=== PATIENT | male | born 1950 | race African-American/Black ===

== ENCOUNTER 2016-05-08 20:29 | Emergency (ER) | payer MEDICARE, OTHER ==
[~2016-05-08] VITALS: Ht 182.9 cm; Wt 68.0 kg
[2016-05-08] MEDS ORDERED: CEPHALEXIN MONOHYDRATE 500 MG CAPSULE PO ONE (22:30)
[2016-05-08] MEDS ORDERED: ONDANSETRON HCL 4 MG TABLET PO ONE (22:30)
[2016-05-08] MEDS ORDERED: OxyCODONE HCL/ACETAMINOPHEN 5-325 MG TABLET PO ONE (22:30)
[2016-05-08] MEDS ORDERED: BACITRACIN 0.9 GM PACKET OINTMENT TP ONE (22:30)
[2016-05-08 23:30] VITALS: BP 138/76
== END 2016-05-08 23:57 | disposition home or self-care (01) ==
LOC: EMS 20:31
DX: S90.812A Abrasion, left foot, initial encounter (principal); S90.811A Abrasion, right foot, initial encounter; J00 Acute nasopharyngitis [common cold]; F17.210 Nicotine dependence, cigarettes, uncomplicated; F10.20 Alcohol dependence, uncomplicated; X58.XXXA Exposure to other specified factors, initial encounter; Y93.89 Activity, other specified; Y92.488 Other paved roadways as the place of occurrence of the external cause; Y99.8 Other external cause status
CPT/HCPCS: 99284; Q0162

== ENCOUNTER 2016-05-15 21:28 | Emergency (ER) | payer MEDICARE, OTHER ==
[~2016-05-15] VITALS: Ht 182.9 cm; Wt 70.0 kg
[2016-05-15 22:07] LABS: BASOPHILS # (AUTO) 0.07 K/uL (0.00-0.20); BASOPHILS % (AUTO) 0.7 % (0.0-2.0); EOSINOPHILS # (AUTO) 0.07 K/uL (0.00-0.70); EOSINOPHILS % (AUTO) 0.65 % (1.0-6.0); HEMATOCRIT 38.3 % (41-53); HEMOGLOBIN 12.8 g/dL (13.5-17.5); LYMPHOCYTES # (AUTO) 2.2 K/uL (1.0-4.8); LYMPHOCYTES % (AUTO) 21.9 % (22.0-44.0); MEAN CORPUSCULAR HEMOGLOBIN 31.5 pg (26.0-34.0); MEAN CORPUSCULAR HGB CONC 33.4 G/dL (31.0-37.0); MEAN CORPUSCULAR VOLUME 94 fL (80-100); MONOCYTES # (AUTO) 0.8 K/uL (0.1-1.0); MONOCYTES % (AUTO) 8.2 % (2.0-9.0); NEUTROPHILS % (AUTO) 68.5 % (40.0-70.0); PLATELET COUNT (AUTO) 296 K/uL (150-450); RED BLOOD CELL COUNT(AUTO) 4.06 MIL/uL (4.50-5.90); RED CELL DISTRIBUTION WIDTH 12.9 % (11.5-14.5); WHITE BLOOD COUNT (AUTO) 10.2 K/uL (4.5-11.0)
[2016-05-15 22:26] LABS: ALANINE AMINOTRANSFERASE 39 U/L (12-78); ALBUMIN 2.5 g/dL (3.4-5.0); ANION GAP 7 mmol/L (8-16); ASPARTATE AMINOTRANSFERASE 72 U/L (15-37); BILIRUBIN,TOTAL 0.4 mg/dL (0.1-1.0); CALCIUM, TOTAL 8.3 mg/dL (8.8-10.5); CARBON DIOXIDE 28 mmol/L (22-29); CHLORIDE 104 mmol/L (98-107); CREATININE 0.82 mg/dL (0.60-1.30); GLOMERULAR FILTR. RATE CALC > 60 mL/min (>60); SODIUM SERUM 139 mmol/L (136-145); TOTAL PROTEIN, SERUM 7.6 g/dL (6.4-8.2); UREA NITROGEN, BLOOD 11 mg/dL (7-18)
[2016-05-15 22:36] LABS: POTASSIUM 2.7 mmol/L (3.5-5.1)
[2016-05-15 22:37] LABS: LACTIC ACID 2.5 mmol/L (0.4-2.0)
[2016-05-15] MEDS ORDERED: BACITRACIN 0.9 GM PACKET OINTMENT TP ONE (23:15)
[2016-05-15] MEDS ORDERED: POTASSIUM CHLORIDE 10% 40 MEQ/30 ML LIQUID UDCUP PO ONE (23:15)
[2016-05-15] MEDS ORDERED: HYDROCODONE/ACETAMINOPHEN 5-325 MG TABLET PO ONE (23:15)
[2016-05-16 00:02] LABS: REFLEX LACTIC ACID? YES YES
[2016-05-16 01:37] VITALS: BP 142/89
== END 2016-05-16 01:39 | disposition home or self-care (01) ==
LOC: EMS 21:30
DX: M79.672 Pain in left foot (principal); M79.671 Pain in right foot; E87.6 Hypokalemia; F10.229 Alcohol dependence with intoxication, unspecified; Y90.7 Blood alcohol level of 200-239 mg/100 ml
CPT/HCPCS: 36415; 71010; 80053; 83605; 83690; 84484; 85025; 93005; 99285; G0480

== ENCOUNTER 2016-08-31 08:26 | Emergency (ER) | payer MEDICARE, OTHER ==
[~2016-08-31] VITALS: Ht 175.3 cm; Wt 86.4 kg
[2016-08-31] MEDS ORDERED: FINA5TAB41 PO (08:55)
[2016-08-31] MEDS ORDERED: TAMS0.4C32 PO (08:55)
[2016-08-31] MEDS ORDERED: OXYC-38 PO (08:55)
[2016-08-31] MEDS ORDERED: LANS30TA4 PO (08:55)
[2016-08-31] MEDS ORDERED: GABA-531 PO (08:55)
[2016-08-31] MEDS ORDERED: FOLI1 PO (08:55)
[2016-08-31] MEDS ORDERED: CEPH500 PO (09:04)
[2016-08-31 10:48] LABS: EOSINOPHILS % (AUTO) 2.7 % (1.0-6.0); HEMATOCRIT 43.4 % (41-53); HEMOGLOBIN 14.5 g/dL (13.5-17.5); LYMPHOCYTES # (AUTO) 1.6 K/uL (1.0-4.8); LYMPHOCYTES % (AUTO) 42.4 % (22.0-44.0); MEAN CORPUSCULAR HEMOGLOBIN 32.7 pg (26.0-34.0); MEAN CORPUSCULAR HGB CONC 33.4 G/dL (31.0-37.0); MEAN CORPUSCULAR VOLUME 98 fL (80-100); MONOCYTES # (AUTO) 0.4 K/uL (0.1-1.0); MONOCYTES % (AUTO) 10.7 % (2.0-9.0); NEUTROPHILS # (AUTO) 1.7 K/uL (1.8-7.7); NEUTROPHILS % (AUTO) 43.2 % (40.0-70.0); PLATELET COUNT (AUTO) 275 K/uL (150-450); RED BLOOD CELL COUNT(AUTO) 4.43 MIL/uL (4.50-5.90); RED CELL DISTRIBUTION WIDTH 17.5 % (11.5-14.5); WHITE BLOOD COUNT (AUTO) 3.8 K/uL (4.5-11.0)
[2016-08-31 10:53] LABS: ALANINE AMINOTRANSFERASE 149 U/L (12-78); ALBUMIN 3.3 g/dL (3.4-5.0); ANION GAP 15 mmol/L (8-16); ASPARTATE AMINOTRANSFERASE 271 U/L (15-37); BILIRUBIN,TOTAL 0.5 mg/dL (0.1-1.0); CALCIUM, TOTAL 8.4 mg/dL (8.8-10.5); CARBON DIOXIDE 25 mmol/L (22-29); CHLORIDE 104 mmol/L (98-107); CREATININE 0.74 mg/dL (0.60-1.30); GLOMERULAR FILTR. RATE CALC > 60 mL/min (>60); SODIUM SERUM 144 mmol/L (136-145); TOTAL PROTEIN, SERUM 8.6 g/dL (6.4-8.2); UREA NITROGEN, BLOOD 6 mg/dL (7-18)
[2016-08-31 11:00] LABS: POTASSIUM 2.9 mmol/L (3.5-5.1)
[2016-08-31 11:03] LABS: RBC MORPHOLOGY COMMENT ABNORMAL RBC MORPH
[2016-08-31] MEDS ORDERED: POTASSIUM CHLORIDE 20 MEQ ER TABLET PO ONE (11:45)
[2016-08-31 13:36] VITALS: BP 130/78
== END 2016-08-31 14:04 | disposition home or self-care (01) ==
LOC: EEVIPCON 08:28 → EMS 08:28
DX: F10.229 Alcohol dependence with intoxication, unspecified (principal); F17.210 Nicotine dependence, cigarettes, uncomplicated; Y90.7 Blood alcohol level of 200-239 mg/100 ml
CPT/HCPCS: 36415; 80053; 80307; 85025; 99285; G0480

== ENCOUNTER 2016-11-28 23:14 | Emergency (ER) | payer MEDICARE, OTHER ==
[~2016-11-28] VITALS: Ht 182.9 cm; Wt 76.0 kg
[~2016-11-28 23:14] MED LIST: CEPH500 PO; FINA5TAB41 PO; FOLI1 PO; GABA-531 PO; LANS30TA4 PO; OXYC-38 PO; TAMS0.4C32 PO
[2016-11-28 23:43] LABS: BASOPHILS # (AUTO) 0.05 K/uL (0.00-0.20); BASOPHILS % (AUTO) 0.8 % (0.0-2.0); EOSINOPHILS # (AUTO) 0.14 K/uL (0.00-0.70); EOSINOPHILS % (AUTO) 2.44 % (1.0-6.0); HEMATOCRIT 37.8 % (41-53); HEMOGLOBIN 12.9 g/dL (13.5-17.5); LYMPHOCYTES # (AUTO) 2.9 K/uL (1.0-4.8); LYMPHOCYTES % (AUTO) 48.7 % (22.0-44.0); MEAN CORPUSCULAR HEMOGLOBIN 34.4 pg (26.0-34.0); MEAN CORPUSCULAR HGB CONC 34.1 G/dL (31.0-37.0); MEAN CORPUSCULAR VOLUME 101 fL (80-100); MONOCYTES # (AUTO) 0.6 K/uL (0.1-1.0); MONOCYTES % (AUTO) 10.2 % (2.0-9.0); NEUTROPHILS # (AUTO) 2.2 K/uL (1.8-7.7); NEUTROPHILS % (AUTO) 37.8 % (40.0-70.0); PLATELET COUNT (AUTO) 229 K/uL (150-450); RED BLOOD CELL COUNT(AUTO) 3.76 MIL/uL (4.50-5.90); RED CELL DISTRIBUTION WIDTH 15.6 % (11.5-14.5); WHITE BLOOD COUNT (AUTO) 5.9 K/uL (4.5-11.0)
[2016-11-28 23:58] LABS: ANION GAP 9 mmol/L (8-16); CALCIUM, TOTAL 8.5 mg/dL (8.8-10.5); CARBON DIOXIDE 27 mmol/L (22-29); CHLORIDE 106 mmol/L (98-107); CREATININE 0.75 mg/dL (0.60-1.30); GLOMERULAR FILTR. RATE CALC > 60 mL/min (>60); POTASSIUM 3.1 mmol/L (3.5-5.1); SODIUM SERUM 142 mmol/L (136-145); UREA NITROGEN, BLOOD 7 mg/dL (7-18)
[2016-11-29 00:04] LABS: ALANINE AMINOTRANSFERASE 182 U/L (12-78); ALBUMIN 2.9 g/dL (3.4-5.0); ASPARTATE AMINOTRANSFERASE 354 U/L (15-37); BILIRUBIN,TOTAL 0.6 mg/dL (0.1-1.0); TOTAL PROTEIN, SERUM 7.7 g/dL (6.4-8.2)
[2016-11-29 00:34] LABS: RBC MORPHOLOGY COMMENT ABNORMAL RBC MORPH
[2016-11-29] MEDS ORDERED: POTASSIUM CHLORIDE 10% 40 MEQ/30 ML LIQUID UDCUP PO ONE (00:45)
[2016-11-29] MEDS ORDERED: 0.9% SODIUM CHLORIDE 5 ML NEB SOLUTION NEB ONE (01:13)
[2016-11-29] MEDS ORDERED: ALBUTEROL SULFATE 5 MG/ML 20 ML NEB SOLN [BULK] NEB ONE (01:15)
[2016-11-29] MEDS ORDERED: IPRATROPIUM BROMIDE 0.5 MG/2.5 ML NEB SOLUTION NEB ONE (01:15)
[2016-11-29 01:50] LABS: B-TYPE NATRIURETIC PEPTIDE 5 pg/mL (0-100)
[2016-11-29 06:07] VITALS: BP 144/88
== END 2016-11-29 06:09 | disposition home or self-care (01) ==
LOC: EMS 23:16
DX: K70.30 Alcoholic cirrhosis of liver without ascites (principal); E87.6 Hypokalemia; K86.1 Other chronic pancreatitis; F10.229 Alcohol dependence with intoxication, unspecified; F17.210 Nicotine dependence, cigarettes, uncomplicated; M79.89 Other specified soft tissue disorders; Y90.8 Blood alcohol level of 240 mg/100 ml or more
CPT/HCPCS: 36415; 71010; 80053; 83690; 83880; 84484; 85025; 93005; 94640; 99285; G0480

== ENCOUNTER 2016-12-13 16:48 | Inpatient (IN) | payer MEDICARE, OTHER ==
[~2016-12-13] VITALS: Ht 182.9 cm; Wt 75.4 kg
[~2016-12-13 16:48] MED LIST changes: -CEPH500 PO
[2016-12-13 17:43] VITALS: BP 155/97
[2016-12-13] MEDS ORDERED: BISACODYL 10 MG RECTAL RECTAL SUPPOSITORY PR PRN (18:45)
[2016-12-13] MEDS ORDERED: ONDANSETRON HCL 4 MG/2 ML VIAL IVP PRN (18:45)
[2016-12-13] MEDS ORDERED: ACETAMINOPHEN 650 MG/20.3 ML SOLUTION UDCUP PO PRN (18:45)
[2016-12-13] MEDS ORDERED: ZOLPIDEM TARTRATE 5 MG TABLET PO PRN (18:45)
[2016-12-13] MEDS ORDERED: 0.9% SODIUM CHLORIDE 10 ML SYRINGE IVP PRN (18:45)
[2016-12-13 19:30] VITALS: BP 154/97
[2016-12-13 19:30] LABS: HEMATOCRIT 42.8 % (41-53); HEMOGLOBIN 14.5 g/dL (13.5-17.5); MEAN CORPUSCULAR HEMOGLOBIN 34.6 pg (26.0-34.0); MEAN CORPUSCULAR HGB CONC 33.8 G/dL (31.0-37.0); MEAN CORPUSCULAR VOLUME 102 fL (80-100); PLATELET COUNT (AUTO) 182 K/uL (150-450); RED BLOOD CELL COUNT(AUTO) 4.17 MIL/uL (4.50-5.90); RED CELL DISTRIBUTION WIDTH 15.9 % (11.5-14.5); WHITE BLOOD COUNT (AUTO) 5.5 K/uL (4.5-11.0)
[2016-12-13 19:42] LABS: INR 1.1 (0.9-1.1); PROTHROMBIN TIME 11.7 SEC (9.4-11.6)
[2016-12-13 19:47] LABS: TROPONIN I 0.02 ng/mL (0.00-0.05)
[2016-12-13 19:57] LABS: LYMPHOCYTES % (MANUAL) 33 % (22-44); TOTAL CELLS COUNTED 100
[2016-12-13 19:58] LABS: RBC MORPHOLOGY COMMENT ABNORMAL R
[2016-12-13 20:03] LABS: ALANINE AMINOTRANSFERASE 89 U/L (12-78); ANION GAP 10 mmol/L (8-16); ASPARTATE AMINOTRANSFERASE 146 U/L (15-37); BILIRUBIN,TOTAL 1.6 mg/dL (0.1-1.0); CARBON DIOXIDE 30 mmol/L (22-29); CHLORIDE 101 mmol/L (98-107); CREATINE KINASE MB 3.6 ng/mL (0-5); CREATINE KINASE, TOTAL 442 U/L (39-308); CREATININE 0.87 mg/dL (0.60-1.30); GLOMERULAR FILTR. RATE CALC > 60 mL/min (>60); PHOSPHORUS 3.4 mg/dL (2.5-4.9); POTASSIUM 3.4 mmol/L (3.5-5.1); SODIUM SERUM 141 mmol/L (136-145); TOTAL PROTEIN, SERUM 7.9 g/dL (6.4-8.2); UREA NITROGEN, BLOOD 10 mg/dL (7-18)
[2016-12-13] MEDS: DOCUSATE SODIUM 100 MG CAPSULE PO SCH (20:09)
[2016-12-13] MEDS: PANTOPRAZOLE SODIUM 40 MG DR TABLET PO SCH (20:09)
[2016-12-13] MEDS: ENOXAPARIN SODIUM 30 MG/0.3 ML PF SYRINGE SQ SCH (20:09)
[2016-12-13] MEDS: ACETAMINOPHEN 325 MG TABLET PO PRN (20:10)
[2016-12-13] MEDS ORDERED: SODIUM CHLORIDE 0.9% 100 ML ONE (20:22)
[2016-12-13] MEDS ORDERED: IOVERSOL 320 MG/ML 100 ML VIAL ONE (20:22)
[2016-12-13] MEDS ORDERED: BARIUM SULFATE 0.1% SUSPENSION 450 ML BOTTLE ONE (20:25)
[2016-12-13 23:39] VITALS: BP 153/82
[2016-12-14 04:43] LABS: APPEARANCE,URINE TURBID (CLEAR); GLUCOSE, URINE (UA) NEGATIVE (NEGATIVE); KETONES,URINE NEGATIVE (NEGATIVE); LEUKOCYTE ESTERASE ,URINE MODERATE (NEGATIVE); OCCULT BLOOD,URINE MODERATE (NEGATIVE); PROTEIN,URINE NEGATIVE (NEGATIVE)
[2016-12-14] MEDS ORDERED: LACTULOSE 20 GM/30 ML SOLUTION UDCUP PO PRN (05:00)
[2016-12-14 05:13] LABS: SQUAMOUS EPITHELIAL CELL,UR Few /LPF (None Seen)
[2016-12-14 05:31] VITALS: BP 138/70
[2016-12-14] MEDS: MAGNESIUM SULFATE 2 GM, MVI, ADULT NO.1 WITH VIT K 10 ML, THIAMINE HCL 100 MG, FOLIC AC... IV SCH ×5 (05:38)
[2016-12-14 07:13] VITALS: BP 159/100
[2016-12-14] MEDS ORDERED: CHLORHEXIDINE GLUCONATE 4% 118 ML TOPICAL LIQUID TP ONE (08:00)
[2016-12-14] MEDS: PANTOPRAZOLE SODIUM 40 MG DR TABLET PO SCH (08:29)
[2016-12-14] MEDS: ENOXAPARIN SODIUM 30 MG/0.3 ML PF SYRINGE SQ SCH (08:29)
[2016-12-14] MEDS: DOCUSATE SODIUM 100 MG CAPSULE PO SCH ×2 (08:30→21:00)
[2016-12-14] MEDS: ACETAMINOPHEN 325 MG TABLET PO PRN (08:34)
[2016-12-14 11:23] VITALS: BP 158/98
[2016-12-14] MEDS: MINERAL OIL/PETROLATUM 120 GM CREAM TP SCH ×2 (14:54→19:55)
[2016-12-14 15:14] VITALS: BP 138/81
[2016-12-14] MEDS: CefTRIAXone 1 GM/DEXTROSE 50 ML IV SCH (16:26)
[2016-12-14 20:05] VITALS: BP 128/66
[2016-12-15] VITALS (7 sets, daily range): BP systolic 111–158; BP diastolic 71–94
[2016-12-15] MEDS: MAGNESIUM SULFATE 2 GM, MVI, ADULT NO.1 WITH VIT K 10 ML, THIAMINE HCL 100 MG, FOLIC AC... IV SCH ×10 (00:21→15:38)
[2016-12-15] MEDS: PANTOPRAZOLE SODIUM 40 MG DR TABLET PO SCH (08:36)
[2016-12-15] MEDS: ENOXAPARIN SODIUM 30 MG/0.3 ML PF SYRINGE SQ SCH (08:36)
[2016-12-15] MEDS: DOCUSATE SODIUM 100 MG CAPSULE PO SCH ×2 (08:36→21:00)
[2016-12-15] MEDS: ACETAMINOPHEN 325 MG TABLET PO PRN (08:37)
[2016-12-15] MEDS ORDERED: CHLORHEXIDINE GLUCONATE 4% 118 ML TOPICAL LIQUID TP ONE (09:00)
[2016-12-15] MEDS ORDERED: HYDROCODONE/ACETAMINOPHEN 5-325 MG TABLET PO PRN (09:30)
[2016-12-15] MEDS: HYDROCODONE/ACETAMINOPHEN 5-325 MG TABLET PO PRN ×3 (10:41→22:57)
[2016-12-15] MEDS: MINERAL OIL/PETROLATUM 120 GM CREAM TP SCH ×2 (10:42→21:00)
[2016-12-15] MEDS: CefTRIAXone 1 GM/DEXTROSE 50 ML IV SCH (15:39)
[2016-12-16 04:35] VITALS: BP 134/88
[2016-12-16] MEDS: MAGNESIUM SULFATE 2 GM, MVI, ADULT NO.1 WITH VIT K 10 ML, THIAMINE HCL 100 MG, FOLIC AC... IV SCH ×5 (05:16)
[2016-12-16] MEDS: HYDROCODONE/ACETAMINOPHEN 5-325 MG TABLET PO PRN ×2 (06:38→20:43)
[2016-12-16] MEDS: DOCUSATE SODIUM 100 MG CAPSULE PO SCH ×2 (07:40→20:46)
[2016-12-16] MEDS: ENOXAPARIN SODIUM 30 MG/0.3 ML PF SYRINGE SQ SCH (07:41)
[2016-12-16] MEDS: PANTOPRAZOLE SODIUM 40 MG DR TABLET PO SCH (07:41)
[2016-12-16] MEDS: CHOLECALCIFEROL (VIT D3) 1,000 UNITS TABLET PO SCH (07:41)
[2016-12-16 07:54] VITALS: BP 147/91
[2016-12-16] MEDS: MINERAL OIL/PETROLATUM 120 GM CREAM TP SCH (08:42)
[2016-12-16 08:46] LABS: ALANINE AMINOTRANSFERASE 83 U/L (12-78); ALBUMIN 2.5 g/dL (3.4-5.0); ANION GAP 9 mmol/L (8-16); ASPARTATE AMINOTRANSFERASE 124 U/L (15-37); BILIRUBIN,TOTAL 0.9 mg/dL (0.1-1.0); CALCIUM, TOTAL 7.9 mg/dL (8.8-10.5); CARBON DIOXIDE 27 mmol/L (22-29); CHLORIDE 104 mmol/L (98-107); CREATININE 0.66 mg/dL (0.60-1.30); GLOMERULAR FILTR. RATE CALC > 60 mL/min (>60); SODIUM SERUM 140 mmol/L (136-145); TOTAL PROTEIN, SERUM 6.9 g/dL (6.4-8.2); UREA NITROGEN, BLOOD 6 mg/dL (7-18)
[2016-12-16 08:49] LABS: POTASSIUM 2.8 mmol/L (3.5-5.1)
[2016-12-16] MEDS ORDERED: POTASSIUM CHL 10 MEQ/WATER 50 ML IV PRN (09:00)
[2016-12-16] MEDS ORDERED: SODIUM CHLORIDE 0.9% 500 ML IV ONE (09:22)
[2016-12-16] MEDS ORDERED: SODIUM CHLORIDE 0.9% 1,000 ML IV ONE ×2 (10:00→10:31)
[2016-12-16] MEDS ORDERED: MIDAZOLAM HCL 5 MG/ML VIAL ONE (11:22)
[2016-12-16] MEDS ORDERED: FentaNYL CITRATE-PF 100 MCG/2 ML VIAL ONE (11:22)
[2016-12-16 12:07] VITALS: BP 133/68
[2016-12-16] MEDS: POTASSIUM CHLORIDE 20 MEQ ER TABLET PO PRN ×2 (12:50→17:35)
[2016-12-16 13:08] LABS: HEPATITIS C AB SCREEN >11.0 s/co ratio (0.0-0.9)
[2016-12-16 14:41] LABS: HEPATITIS Bs ANTIGEN SCREEN P Positive (Negative)
[2016-12-16 15:55] VITALS: BP 144/85
[2016-12-16] MEDS: CefTRIAXone 1 GM/DEXTROSE 50 ML IV SCH (17:28)
[2016-12-16 20:33] VITALS: BP 143/92
[2016-12-16 23:42] VITALS: BP 139/85
[2016-12-17 04:00] VITALS: BP 147/91
[2016-12-17 05:07] LABS: HEPATITIS Bs ANTIGEN SCREEN P Positive (Negative); HEPATITIS C AB SCREEN >11.0 s/co ratio (0.0-0.9)
[2016-12-17] MEDS: MINERAL OIL/PETROLATUM 120 GM CREAM TP SCH ×3 (06:22→19:47)
[2016-12-17] MEDS: HYDROCODONE/ACETAMINOPHEN 5-325 MG TABLET PO PRN ×3 (06:22→19:46)
[2016-12-17 07:22] VITALS: BP 129/85
[2016-12-17] MEDS ORDERED: CHLORHEXIDINE GLUCONATE 4% 118 ML TOPICAL LIQUID TP ONE (08:30)
[2016-12-17] MEDS: DOCUSATE SODIUM 100 MG CAPSULE PO SCH ×2 (08:44→19:46)
[2016-12-17] MEDS: ENOXAPARIN SODIUM 30 MG/0.3 ML PF SYRINGE SQ SCH (08:44)
[2016-12-17] MEDS: PANTOPRAZOLE SODIUM 40 MG DR TABLET PO SCH (08:44)
[2016-12-17 11:40] VITALS: BP 115/68
[2016-12-17] MEDS: CHOLECALCIFEROL (VIT D3) 1,000 UNITS TABLET PO SCH (12:26)
[2016-12-17 15:29] VITALS: BP 144/95
[2016-12-17] MEDS: CefTRIAXone 1 GM/DEXTROSE 50 ML IV SCH (15:29)
[2016-12-17 19:26] VITALS: BP 137/90
[2016-12-17 23:53] VITALS: BP 144/84
[2016-12-18 03:16] VITALS: BP 158/93
[2016-12-18] MEDS: HYDROCODONE/ACETAMINOPHEN 5-325 MG TABLET PO PRN ×2 (03:22→15:07)
[2016-12-18] MEDS ORDERED: PNEUMOCOCCAL VACCINE POLYVALENT 0.5 ML VIAL [PPSV23] IM ONE (06:00)
[2016-12-18] MEDS: DOCUSATE SODIUM 100 MG CAPSULE PO SCH ×2 (07:51→20:19)
[2016-12-18] MEDS: PANTOPRAZOLE SODIUM 40 MG DR TABLET PO SCH (07:51)
[2016-12-18] MEDS: CHOLECALCIFEROL (VIT D3) 1,000 UNITS TABLET PO SCH (07:51)
[2016-12-18] MEDS: MULTIVITAMINS WITH MINERALS, THERAPEUTIC TABLET PO SCH (07:51)
[2016-12-18] MEDS: ENOXAPARIN SODIUM 30 MG/0.3 ML PF SYRINGE SQ SCH (07:52)
[2016-12-18 08:01] VITALS: BP 137/87
[2016-12-18] MEDS ORDERED: HEPATITIS A VACCINE, INACTI [ADULT] 1,440 UNITS/ML VIAL IM ONE (08:15)
[2016-12-18] MEDS: MINERAL OIL/PETROLATUM 120 GM CREAM TP SCH ×2 (11:42→20:19)
[2016-12-18 11:56] VITALS: BP 143/89
[2016-12-18] MEDS: CefTRIAXone 1 GM/DEXTROSE 50 ML IV SCH (15:07)
[2016-12-18 15:25] VITALS: BP 150/95
[2016-12-18 19:58] VITALS: BP 119/73
[2016-12-19] MEDS: HYDROCODONE/ACETAMINOPHEN 5-325 MG TABLET PO PRN ×3 (00:09→19:43)
[2016-12-19 00:12] VITALS: BP 128/88
[2016-12-19 04:30] VITALS: BP 118/76
[2016-12-19 07:53] VITALS: BP 130/82
[2016-12-19] MEDS: PANTOPRAZOLE SODIUM 40 MG DR TABLET PO SCH (09:10)
[2016-12-19] MEDS: CHOLECALCIFEROL (VIT D3) 1,000 UNITS TABLET PO SCH (09:10)
[2016-12-19] MEDS: MULTIVITAMINS WITH MINERALS, THERAPEUTIC TABLET PO SCH (09:11)
[2016-12-19] MEDS: DOCUSATE SODIUM 100 MG CAPSULE PO SCH ×2 (09:11→19:44)
[2016-12-19] MEDS: ENOXAPARIN SODIUM 30 MG/0.3 ML PF SYRINGE SQ SCH (09:11)
[2016-12-19] MEDS: MINERAL OIL/PETROLATUM 120 GM CREAM TP SCH ×2 (09:16→23:50)
[2016-12-19] MEDS: CefTRIAXone 1 GM/DEXTROSE 50 ML IV SCH (15:39)
[2016-12-19 16:35] VITALS: BP 127/78
[2016-12-19 19:23] VITALS: BP 126/66
[2016-12-19 23:55] VITALS: BP 121/78
[2016-12-20 05:48] VITALS: BP 131/82
[2016-12-20 07:45] VITALS: BP 143/79
[2016-12-20] MEDS: PANTOPRAZOLE SODIUM 40 MG DR TABLET PO SCH (08:08)
[2016-12-20] MEDS: HYDROCODONE/ACETAMINOPHEN 5-325 MG TABLET PO PRN (08:08)
[2016-12-20] MEDS: MULTIVITAMINS WITH MINERALS, THERAPEUTIC TABLET PO SCH (08:08)
[2016-12-20] MEDS: CHOLECALCIFEROL (VIT D3) 1,000 UNITS TABLET PO SCH (08:08)
[2016-12-20] MEDS: ENOXAPARIN SODIUM 30 MG/0.3 ML PF SYRINGE SQ SCH (08:09)
[2016-12-20] MEDS: MINERAL OIL/PETROLATUM 120 GM CREAM TP SCH (08:09)
[2016-12-20] MEDS: DOCUSATE SODIUM 100 MG CAPSULE PO SCH (08:53)
[2016-12-20] MEDS: CefTRIAXone 1 GM/DEXTROSE 50 ML IV SCH (16:29)
[2016-12-20 20:27] VITALS: BP 134/90
== END 2016-12-20 20:25 | DRG 432 ==
LOC: 6N 16:55
PROVIDERS: ADMIT Internal Medicine; ATTEND Internal Medicine
PROC: 0DB68ZX Excision of Stomach, Via Natural or Artificial Opening Endoscopic, Diagnostic (ICD-10-PCS; principal; 2016-12-16 11:00)
DX: K70.40 Alcoholic hepatic failure without coma (principal); E43 Unspecified severe protein-calorie malnutrition; K70.10 Alcoholic hepatitis without ascites; L89.159 Pressure ulcer of sacral region, unspecified stage; E86.0 Dehydration; N39.0 Urinary tract infection, site not specified; B18.1 Chronic viral hepatitis B without delta-agent; K76.0 Fatty (change of) liver, not elsewhere classified; N31.9 Neuromuscular dysfunction of bladder, unspecified; F10.129 Alcohol abuse with intoxication, unspecified; E87.6 Hypokalemia; F12.90 Cannabis use, unspecified, uncomplicated; K29.70 Gastritis, unspecified, without bleeding; K80.20 Calculus of gallbladder without cholecystitis without obstruction; L28.0 Lichen simplex chronicus; N13.9 Obstructive and reflux uropathy, unspecified; N40.1 Benign prostatic hyperplasia with lower urinary tract symptoms; R29.6 Repeated falls; R62.7 Adult failure to thrive; F17.200 Nicotine dependence, unspecified, uncomplicated; E55.9 Vitamin D deficiency, unspecified; B18.2 Chronic viral hepatitis C; Z99.3 Dependence on wheelchair; Z59.0 Homelessness; Z74.01 Bed confinement status; Z68.22 Body mass index [BMI] 22.0-22.9, adult
CPT/HCPCS: 70450; 71020; 74177; 76770; 80074; 82105; 82248; 82270; 82271; 82306; 82607; 82746; 83036; 83735; 84100; 84132; 84153; 85007; 86592; 86706; 86708; 86709; 86803; 87040; 87086; 87340; 87389; 88305; 88312; 90632; 93880; 93970; 97166; J0696; J1650; J2250; J3010; J3411; J3475; J3480; J3490; J7030; J7040; J7050

== ENCOUNTER 2017-02-03 00:59 | Inpatient (IN) | payer MEDICARE, OTHER ==
[~2017-02-03] VITALS: Ht 190.5 cm; Wt 70.6 kg
[2017-02-03] MEDS ORDERED: Vit D3 PO (01:14)
[2017-02-03] MEDS ORDERED: MULT-248 PO (01:15)
[2017-02-03] MEDS ORDERED: TAMS0.4C32 PO (01:20)
[2017-02-03] MEDS ORDERED: VITAMIN C PO (01:20)
[2017-02-03] MEDS ORDERED: ENOX30DI5 SQ (01:20)
[2017-02-03] MEDS ORDERED: FINA5TAB41 PO (01:20)
[2017-02-03] MEDS ORDERED: AMIN30LI28 PO (01:20)
[2017-02-03] MEDS ORDERED: ACETAMINOPHEN 325 MG TABLET PO ONE (01:30)
[2017-02-03] MEDS ORDERED: SODIUM CHLORIDE 0.9% 1,000 ML IV ONE (01:30)
[2017-02-03 01:52] LABS: BASOPHILS # (AUTO) 0.03 K/uL (0.00-0.20); BASOPHILS % (AUTO) 0.2 % (0.0-2.0); EOSINOPHILS % (AUTO) 0.03 % (1.0-6.0); HEMATOCRIT 43.2 % (41-53); HEMOGLOBIN 14.4 g/dL (13.5-17.5); LYMPHOCYTES # (AUTO) 1.5 K/uL (1.0-4.8); LYMPHOCYTES % (AUTO) 9.7 % (22.0-44.0); MEAN CORPUSCULAR HEMOGLOBIN 32.6 pg (26.0-34.0); MEAN CORPUSCULAR HGB CONC 33.2 G/dL (31.0-37.0); MEAN CORPUSCULAR VOLUME 98 fL (80-100); MONOCYTES # (AUTO) 1.8 K/uL (0.1-1.0); MONOCYTES % (AUTO) 11.7 % (2.0-9.0); NEUTROPHILS # (AUTO) 12.2 K/uL (1.8-7.7); NEUTROPHILS % (AUTO) 78.3 % (40.0-70.0); PLATELET COUNT (AUTO) 141 K/uL (150-450); RED BLOOD CELL COUNT(AUTO) 4.41 MIL/uL (4.50-5.90); WHITE BLOOD COUNT (AUTO) 15.6 K/uL (4.5-11.0)
[2017-02-03 01:55] LABS: APPEARANCE,URINE CLOUDY (CLEAR); GLUCOSE, URINE (UA) NEGATIVE (NEGATIVE); KETONES,URINE TRACE mg/dL (NEGATIVE); LEUKOCYTE ESTERASE ,URINE MODERATE (NEGATIVE); OCCULT BLOOD,URINE MODERATE (NEGATIVE); PH,URINE 5.5 (5.0-8.0); PROTEIN,URINE POS 1+ (NEGATIVE)
[2017-02-03 01:57] LABS: ADD UA MICROSCOPIC YES
[2017-02-03 02:06] LABS: ANION GAP 10 mmol/L (8-16); CALCIUM, TOTAL 8.9 mg/dL (8.8-10.5); CARBON DIOXIDE 24 mmol/L (22-29); CHLORIDE 99 mmol/L (98-107); CREATININE 1.17 mg/dL (0.60-1.30); GLOMERULAR FILTR. RATE CALC > 60 mL/min (>60); POTASSIUM 3.5 mmol/L (3.5-5.1); SODIUM SERUM 133 mmol/L (136-145); UREA NITROGEN, BLOOD 17 mg/dL (7-18)
[2017-02-03 02:11] LABS: ALANINE AMINOTRANSFERASE 27 U/L (12-78); ASPARTATE AMINOTRANSFERASE 23 U/L (15-37); BILIRUBIN,TOTAL 1.9 mg/dL (0.1-1.0); TOTAL PROTEIN, SERUM 8.3 g/dL (6.4-8.2)
[2017-02-03 02:15] LABS: SQUAMOUS EPITHELIAL CELL,UR Few /LPF (None Seen)
[2017-02-03] MEDS ORDERED: ACETAMINOPHEN 325 MG TABLET PO PRN (03:00)
[2017-02-03] MEDS ORDERED: 0.9% SODIUM CHLORIDE 10 ML SYRINGE IVP PRN (03:00)
[2017-02-03] MEDS ORDERED: ONDANSETRON HCL 4 MG/2 ML VIAL IVP PRN ×2 (03:00→10:00)
[2017-02-03] MEDS ORDERED: LEVOFLOXACIN 750 MG/D5% WATER 150 ML IV ONE (03:00)
[2017-02-03] MEDS ORDERED: SODIUM CHLORIDE 0.9% 250 ML IV ONE (03:45)
[2017-02-03 03:54] VITALS: BP 128/82
[2017-02-03 07:12] VITALS: BP 128/76
[2017-02-03] MEDS ORDERED: HYDROCODONE/ACETAMINOPHEN 5-325 MG TABLET PO PRN (10:00)
[2017-02-03] MEDS ORDERED: HEPARIN SODIUM,PORCINE 5,000 UNITS/ML VIAL SQ SCH (10:00)
[2017-02-03] MEDS ORDERED: ZOLPIDEM TARTRATE 5 MG TABLET PO PRN (10:00)
[2017-02-03] MEDS ORDERED: DEXTROSE 5%-0.9% SODIUM CHL 1,000 ML IV SCH (10:30)
[2017-02-03] MEDS: LEVOFLOXACIN 750 MG/D5% WATER 150 ML IV SCH (10:41)
[2017-02-03 11:28] VITALS: BP 112/54
[2017-02-03] MEDS: POTASSIUM CHL 10 MEQ/WATER 50 ML IV PRN ×3 (12:08→15:17)
[2017-02-03] MEDS: ENOXAPARIN SODIUM 30 MG/0.3 ML PF SYRINGE SQ SCH (15:16)
[2017-02-03 15:19] VITALS: BP 110/57
[2017-02-03 19:56] VITALS: BP 141/66
[2017-02-03] MEDS: DEXTROSE 5%-0.9% SODIUM CHL 1,000 ML IV SCH (20:03)
[2017-02-03] MEDS: DOCUSATE SODIUM 100 MG CAPSULE PO SCH (20:03)
[2017-02-03] MEDS: VITAMINS A & D 60 GM OINTMENT TP SCH (20:04)
[2017-02-03 23:08] VITALS: BP 112/65
[2017-02-03] MEDS: ACETAMINOPHEN 325 MG TABLET PO PRN (23:28)
[2017-02-04 05:40] VITALS: BP 137/86
[2017-02-04] MEDS: DEXTROSE 5%-0.9% SODIUM CHL 1,000 ML IV SCH ×2 (06:09→14:54)
[2017-02-04 07:33] VITALS: BP 144/78
[2017-02-04] MEDS: DOCUSATE SODIUM 100 MG CAPSULE PO SCH ×2 (08:31→20:32)
[2017-02-04] MEDS: ENOXAPARIN SODIUM 30 MG/0.3 ML PF SYRINGE SQ SCH (08:31)
[2017-02-04] MEDS: VITAMINS A & D 60 GM OINTMENT TP SCH ×2 (08:32→20:32)
[2017-02-04] MEDS: LEVOFLOXACIN 750 MG/D5% WATER 150 ML IV SCH (10:32)
[2017-02-04 11:49] VITALS: BP 126/70
[2017-02-04 15:55] VITALS: BP 107/61
[2017-02-04] MEDS: ACETAMINOPHEN 325 MG TABLET PO PRN (16:07)
[2017-02-04 19:16] VITALS: BP 115/66
[2017-02-04 23:42] VITALS: BP 145/92
[2017-02-05] MEDS: DEXTROSE 5%-0.9% SODIUM CHL 1,000 ML IV SCH ×3 (01:19→21:32)
[2017-02-05] MEDS ORDERED: SODIUM CHLORIDE 0.9% IRRIG BTL 1,000 ML IRRIG ONE ×2 (01:23→02:10)
[2017-02-05 04:25] VITALS: BP 120/69
[2017-02-05 07:21] VITALS: BP 136/77
[2017-02-05] MEDS ORDERED: CefTRIAXone 1 GM/DEXTROSE 50 ML IV ONE (08:00)
[2017-02-05] MEDS: DOCUSATE SODIUM 100 MG CAPSULE PO SCH ×2 (09:04→21:00)
[2017-02-05] MEDS: ENOXAPARIN SODIUM 30 MG/0.3 ML PF SYRINGE SQ SCH (09:05)
[2017-02-05] MEDS: VITAMINS A & D 60 GM OINTMENT TP SCH ×2 (09:05→20:39)
[2017-02-05 11:45] VITALS: BP 119/68
[2017-02-05 15:37] VITALS: BP 143/84
[2017-02-05 19:31] VITALS: BP 136/80
[2017-02-05 23:50] VITALS: BP 143/77
[2017-02-06 03:45] VITALS: BP 112/65
[2017-02-06 06:13] LABS: BASOPHILS % (AUTO) 0.1 % (0.0-2.0); EOSINOPHILS # (AUTO) 0.04 K/uL (0.00-0.70); EOSINOPHILS % (AUTO) 0.47 % (1.0-6.0); HEMATOCRIT 35.2 % (41-53); HEMOGLOBIN 11.7 g/dL (13.5-17.5); LYMPHOCYTES # (AUTO) 0.7 K/uL (1.0-4.8); MEAN CORPUSCULAR HEMOGLOBIN 32.1 pg (26.0-34.0); MEAN CORPUSCULAR HGB CONC 33.3 G/dL (31.0-37.0); MEAN CORPUSCULAR VOLUME 96 fL (80-100); MONOCYTES # (AUTO) 0.7 K/uL (0.1-1.0); MONOCYTES % (AUTO) 8.2 % (2.0-9.0); NEUTROPHILS # (AUTO) 7.3 K/uL (1.8-7.7); NEUTROPHILS % (AUTO) 83.3 % (40.0-70.0); PLATELET COUNT (AUTO) 175 K/uL (150-450); RED BLOOD CELL COUNT(AUTO) 3.65 MIL/uL (4.50-5.90); WHITE BLOOD COUNT (AUTO) 8.8 K/uL (4.5-11.0)
[2017-02-06 06:20] LABS: ALANINE AMINOTRANSFERASE 68 U/L (12-78); ALBUMIN 2.3 g/dL (3.4-5.0); ANION GAP 11 mmol/L (8-16); ASPARTATE AMINOTRANSFERASE 120 U/L (15-37); BILIRUBIN,TOTAL 1.2 mg/dL (0.1-1.0); CALCIUM, TOTAL 8.1 mg/dL (8.8-10.5); CARBON DIOXIDE 23 mmol/L (22-29); CHLORIDE 104 mmol/L (98-107); CREATININE 0.98 mg/dL (0.60-1.30); GLOMERULAR FILTR. RATE CALC > 60 mL/min (>60); SODIUM SERUM 138 mmol/L (136-145); TOTAL PROTEIN, SERUM 6.7 g/dL (6.4-8.2); UREA NITROGEN, BLOOD 8 mg/dL (7-18)
[2017-02-06 06:44] LABS: POTASSIUM 2.6 mmol/L (3.5-5.1)
[2017-02-06] MEDS: POTASSIUM CHL 10 MEQ/WATER 50 ML IV PRN (06:55)
[2017-02-06 07:22] VITALS: BP 107/57
[2017-02-06] MEDS: ENOXAPARIN SODIUM 30 MG/0.3 ML PF SYRINGE SQ SCH (07:50)
[2017-02-06] MEDS: DEXTROSE 5%-0.9% SODIUM CHL 1,000 ML IV SCH (07:51)
[2017-02-06] MEDS: DOCUSATE SODIUM 100 MG CAPSULE PO SCH (07:51)
[2017-02-06] MEDS: VITAMINS A & D 60 GM OINTMENT TP SCH (07:56)
[2017-02-06] MEDS ORDERED: CefTRIAXone 1 GM/DEXTROSE 50 ML IV SCH (08:00)
== END 2017-02-06 17:45 | disposition left against medical advice (07) | DRG 872 ==
LOC: EMS 01:01 → 5S 02:41
PROVIDERS: ADMIT Internal Medicine; ATTEND Internal Medicine
DX: A41.9 Sepsis, unspecified organism (principal); G95.9 Disease of spinal cord, unspecified; N12 Tubulo-interstitial nephritis, not specified as acute or chronic; N39.0 Urinary tract infection, site not specified; N13.6 Pyonephrosis; N31.9 Neuromuscular dysfunction of bladder, unspecified; E86.0 Dehydration; E87.6 Hypokalemia; K21.9 Gastro-esophageal reflux disease without esophagitis; Z86.718 Personal history of other venous thrombosis and embolism; B96.20 Unspecified Escherichia coli [E. coli] as the cause of diseases classified elsewhere; N40.1 Benign prostatic hyperplasia with lower urinary tract symptoms; R33.8 Other retention of urine; Z22.322 Carrier or suspected carrier of Methicillin resistant Staphylococcus aureus; Z59.0 Homelessness; Z87.440 Personal history of urinary (tract) infections; Z87.891 Personal history of nicotine dependence; R65.10 Systemic inflammatory response syndrome (SIRS) of non-infectious origin without acute organ dysfunction
CPT/HCPCS: 76770; 82308; 84132; 87040; 87081; 87086; 96361; 96365; 99285; G0480; J0696; J1644; J1650; J1956; J2405; J3480; J7030; J7042; J7050

== ENCOUNTER 2017-02-11 22:50 | Emergency (ER) | payer MEDICARE, OTHER ==
[~2017-02-11] VITALS: Ht 182.9 cm; Wt 76.0 kg
[~2017-02-11 22:50] MED LIST changes: +AMIN30LI28 PO; +ENOX30DI5 SQ; +MULT-248 PO; -OXYC-38 PO; +VITAMIN C PO; +Vit D3 PO
[2017-02-12 00:48] LABS: BASOPHILS % (AUTO) 0.5 % (0.0-2.0); EOSINOPHILS % (AUTO) 2.2 % (1.0-6.0); HEMATOCRIT 37.4 % (41-53); HEMOGLOBIN 12.6 g/dL (13.5-17.5); LYMPHOCYTES # (AUTO) 2.3 K/uL (1.0-4.8); LYMPHOCYTES % (AUTO) 29.4 % (22.0-44.0); MEAN CORPUSCULAR HEMOGLOBIN 32.1 pg (26.0-34.0); MEAN CORPUSCULAR HGB CONC 33.8 G/dL (31.0-37.0); MEAN CORPUSCULAR VOLUME 95 fL (80-100); MONOCYTES # (AUTO) 0.4 K/uL (0.1-1.0); MONOCYTES % (AUTO) 5.5 % (2.0-9.0); NEUTROPHILS # (AUTO) 4.8 K/uL (1.8-7.7); NEUTROPHILS % (AUTO) 62.4 % (40.0-70.0); PLATELET COUNT (AUTO) 421 K/uL (150-450); RED BLOOD CELL COUNT(AUTO) 3.94 MIL/uL (4.50-5.90); RED CELL DISTRIBUTION WIDTH 13.4 % (11.5-14.5); WHITE BLOOD COUNT (AUTO) 7.8 K/uL (4.5-11.0)
[2017-02-12 00:58] LABS: INR 1.1 (0.9-1.1); PROTHROMBIN TIME 11.6 SEC (9.4-11.6)
[2017-02-12 01:07] LABS: ANION GAP 12 mmol/L (8-16); CALCIUM, TOTAL 8.5 mg/dL (8.8-10.5); CARBON DIOXIDE 26 mmol/L (22-29); CHLORIDE 104 mmol/L (98-107); CREATININE 0.61 mg/dL (0.60-1.30); GLOMERULAR FILTR. RATE CALC > 60 mL/min (>60); POTASSIUM 3.5 mmol/L (3.5-5.1); SODIUM SERUM 142 mmol/L (136-145); UREA NITROGEN, BLOOD 5 mg/dL (7-18)
[2017-02-12 01:13] LABS: ALANINE AMINOTRANSFERASE 59 U/L (12-78); ALBUMIN 2.5 g/dL (3.4-5.0); ASPARTATE AMINOTRANSFERASE 74 U/L (15-37); BILIRUBIN,TOTAL 0.4 mg/dL (0.1-1.0); TOTAL PROTEIN, SERUM 7.4 g/dL (6.4-8.2)
[2017-02-12 01:15] LABS: ADD UA MICROSCOPIC NO; APPEARANCE,URINE CLEAR (CLEAR); GLUCOSE, URINE (UA) NEGATIVE (NEGATIVE); KETONES,URINE NEGATIVE (NEGATIVE); LEUKOCYTE ESTERASE ,URINE NEGATIVE (NEGATIVE); OCCULT BLOOD,URINE NEGATIVE (NEGATIVE); PH,URINE 5.5 (5.0-8.0); PROTEIN,URINE NEGATIVE (NEGATIVE)
[2017-02-12] MEDS ORDERED: SODIUM CHLORIDE 0.9% 1,000 ML IV ONE (02:00)
[2017-02-12 03:50] VITALS: BP 119/77
== END 2017-02-12 03:59 | disposition home or self-care (01) ==
LOC: EMS 22:52
DX: F10.239 Alcohol dependence with withdrawal, unspecified (principal); F17.210 Nicotine dependence, cigarettes, uncomplicated; K21.9 Gastro-esophageal reflux disease without esophagitis; Y90.6 Blood alcohol level of 120-199 mg/100 ml
CPT/HCPCS: 36415; 80053; 80307; 81003; 85025; 85610; 85730; 93005; 99285; 99406; G0480; J7030

== ENCOUNTER 2017-03-24 02:55 | Emergency (ER) | payer MEDICARE, OTHER ==
[~2017-03-24] VITALS: Ht 182.9 cm; Wt 90.9 kg
[2017-03-24] MEDS ORDERED: ACETAMINOPHEN 500 MG TABLET PO ONE (08:30)
[2017-03-24] MEDS ORDERED: BACITRACIN 0.9 GM PACKET OINTMENT TP ONE (12:02)
[2017-03-24 12:18] VITALS: BP 134/78
== END 2017-03-24 12:51 | disposition home or self-care (01) ==
LOC: EMS 02:56
DX: S91.309A Unspecified open wound, unspecified foot, initial encounter (principal); F10.229 Alcohol dependence with intoxication, unspecified; R60.0 Localized edema; M54.9 Dorsalgia, unspecified; K21.9 Gastro-esophageal reflux disease without esophagitis; N40.0 Benign prostatic hyperplasia without lower urinary tract symptoms; F17.210 Nicotine dependence, cigarettes, uncomplicated; Z59.0 Homelessness; X58.XXXA Exposure to other specified factors, initial encounter; Y93.89 Activity, other specified; Y92.488 Other paved roadways as the place of occurrence of the external cause; Y99.8 Other external cause status; Y90.1 Blood alcohol level of 20-39 mg/100 ml
CPT/HCPCS: 36415; 99283; G0480

== ENCOUNTER 2017-12-04 18:38 | Emergency (ER) | payer MEDICARE, OTHER ==
[~2017-12-04] VITALS: Ht 170.2 cm; Wt 71.1 kg
[2017-12-04 21:27] LABS: EOSINOPHILS % (AUTO) 0.8 % (1.0-6.0); HEMOGLOBIN 13.7 g/dL (13.5-17.5); LYMPHOCYTES # (AUTO) 2.8 K/uL (1.0-4.8); LYMPHOCYTES % (AUTO) 45.6 % (22.0-44.0); MEAN CORPUSCULAR HEMOGLOBIN 32.9 pg (26.0-34.0); MEAN CORPUSCULAR HGB CONC 34.2 G/dL (31.0-37.0); MEAN CORPUSCULAR VOLUME 96 fL (80-100); MONOCYTES # (AUTO) 0.6 K/uL (0.1-1.0); MONOCYTES % (AUTO) 10.6 % (2.0-9.0); NEUTROPHILS # (AUTO) 2.5 K/uL (1.8-7.7); PLATELET COUNT (AUTO) 131 K/uL (150-450); RED BLOOD CELL COUNT(AUTO) 4.16 MIL/uL (4.50-5.90); RED CELL DISTRIBUTION WIDTH 13.6 % (11.5-14.5)
[2017-12-04 21:35] LABS: ANION GAP 9 mmol/L (8-16); CALCIUM, TOTAL 8.3 mg/dL (8.8-10.5); CARBON DIOXIDE 29 mmol/L (22-29); CHLORIDE 106 mmol/L (98-107); GLOMERULAR FILTR. RATE CALC > 60 mL/min (>60); GLUCOSE,RANDOM 86 mg/dL (70-110); POTASSIUM 3.3 mmol/L (3.5-5.1); SODIUM SERUM 144 mmol/L (136-145); UREA NITROGEN, BLOOD 9 mg/dL (7-18)
[2017-12-04 21:36] LABS: PROTHROMBIN TIME 10.7 SEC (9.4-11.6)
[2017-12-04 21:46] LABS: B-TYPE NATRIURETIC PEPTIDE < 5 pg/mL (0-100)
[2017-12-04] MEDS ORDERED: SODIUM CHLORIDE 0.9% 1,000 ML IV ONE (22:00)
[2017-12-04 22:05] LABS: ALANINE AMINOTRANSFERASE 95 U/L (12-78); ALBUMIN 2.8 g/dL (3.4-5.0); ALKALINE PHOSPHATASE 66 U/L (46-116); ASPARTATE AMINOTRANSFERASE 147 U/L (15-37); BILIRUBIN,TOTAL 0.6 mg/dL (0.1-1.0); CREATINE KINASE, TOTAL ONLY 177 U/L (39-308); TOTAL PROTEIN, SERUM 7.3 g/dL (6.4-8.2)
[2017-12-04] MEDS ORDERED: POTASSIUM CHLORIDE 20 MEQ ER TABLET PO ONE (22:15)
[2017-12-04] MEDS ORDERED: DIPHENOXYLATE/ATROP 2.5-0.025 MG TABLET PO ONE (22:15)
[2017-12-04 23:31] VITALS: BP 116/79
== END 2017-12-04 23:36 | disposition home or self-care (01) ==
LOC: EMS 18:40
DX: F10.229 Alcohol dependence with intoxication, unspecified (principal); E87.6 Hypokalemia; R19.7 Diarrhea, unspecified; R60.0 Localized edema; K21.9 Gastro-esophageal reflux disease without esophagitis; F17.210 Nicotine dependence, cigarettes, uncomplicated; Z79.899 Other long term (current) drug therapy
CPT/HCPCS: 71045; 80053; 82550; 82553; 83880; 84484; 85025; 85610; 85730; 93005; 96360; 99285; G0480; J7030

== ENCOUNTER 2017-12-16 05:08 | Emergency (ER) | payer MEDICARE, OTHER ==
[~2017-12-16] VITALS: Ht 182.9 cm; Wt 72.0 kg
[~2017-12-16 05:08] MED LIST changes: -ENOX30DI5 SQ
[2017-12-16 05:37] VITALS: BP 141/87
== END 2017-12-16 05:50 | disposition home or self-care (01) ==
LOC: EMS 05:08
DX: N13.9 Obstructive and reflux uropathy, unspecified (principal); R33.9 Retention of urine, unspecified; F10.10 Alcohol abuse, uncomplicated; F17.210 Nicotine dependence, cigarettes, uncomplicated; K59.00 Constipation, unspecified; K75.9 Inflammatory liver disease, unspecified; Z79.899 Other long term (current) drug therapy; Y90.9 Presence of alcohol in blood, level not specified
CPT/HCPCS: 51702; 99284

== ENCOUNTER 2018-08-30 06:10 | Emergency (ER) | payer MEDICARE, OTHER ==
[~2018-08-30] VITALS: Ht 182.9 cm; Wt 81.8 kg
[2018-08-30 07:40] VITALS: BP 152/93
== END 2018-08-30 08:22 | disposition home or self-care (01) ==
LOC: EMS 06:16
DX: R33.9 Retention of urine, unspecified (principal); R10.30 Lower abdominal pain, unspecified; K21.9 Gastro-esophageal reflux disease without esophagitis; F17.210 Nicotine dependence, cigarettes, uncomplicated
CPT/HCPCS: 51702